=== PATIENT | male | born 1930 | race Caucasian/White ===

== ENCOUNTER 2018-03-06 14:03 | Inpatient (IN) | payer OTHER ==
[~2018-03-06] VITALS: Ht 167.6 cm; Wt 83.5 kg
--- NOTE | ~2018-03-06 | 2DMMODE ---
[facility] [address] [place] [address] 2 D/M-MODE ECHOCARDIOGRAM Name: YISELJESS Duane Room #: 451-P ADM IN .R.#: [id number] Admission: 03/06/18 Attend Phys: Sumit Canseco MD Discharge: Date of : [birth year] Date of Service: 03/07/18 1040 Report #: [id number] THIS REPORT FOR: //name// APPROVED REPORT Study performed: 03/07/2018 07:38:27 EXAM: Comprehensive 2D, Doppler, and color-flow Echocardiogram Patient Location: Bedside Room #: [facility] Status: routine BSA: 1.96 HR: 67 bpm BP: 137/87 mmHg Other Information Study Quality: Adequate Indications Congestive Heart Failure Diabetes CAD Hypertension/HDD Hx afib, SOA, elevated BNP 2D Dimensions RVDd: 44.07 mm IVSd: 12.81 (7-11mm) LVOT Diam: 21.64 (18-24mm) LVDd: 50.54 mm PWd: 11.49 (7-11mm) Ascending Ao: 24.97 (22-36mm) LVDs: 46.73 (25-40mm) Aortic Root: 29.90 mm IVC: 22.00 mm Volumes Left Atrial Volume (Systole) Single Plane 4CH: 50.60 mL Single Plane 2CH: 57.17 mL LA ESV Index: 31.00 mL/m2 Aortic Valve AoV Peak Bean.: 2.37 m/s AO Peak Gr.: 22.48 mmHg LVOT Max P.23 mmHg AO Mean Gr.: 11.05 mmHg LVOT Mean P.55 mmHg AO V2 Mean: 1.53 m/s LVOT Max V: 0.55 m/s AO V2 VTI: 49.91 cm LVOT Mean V: 0.33 m/s FRANCISCO (VTI): 0.91 cm2 LVOT V1 VTI: 12.38 cm [facility] [place] [address] 2 D/M-MODE ECHOCARDIOGRAM Name: YISELJESS Duane Room #: 451-P [facility] IN [facility].#: [id number] Admission: 03/06/18 Attend Phys: Sumit Canseco MD Discharge: Date of : [birth year] Date of Service: 03/07/18 1040 Report #: [id number] FRANCISCO Vmax: 0.86 cm2 AI Vmax: 3.39 m/s SV (LVOT): 45.49 mL AI [place]: 2.28 m/s2 AI PHT: 431.34 ms Mitral Valve E/A Ratio: 3.4 MV Decel. Time: 165.37 ms MV E Max Bean.: 1.01 m/s MV A Bean.: 0.30 m/s MV PHT: 47.96 ms IVRT: 83.04 ms Pulmonary Valve PV Peak Bean.: 0.60 m/s PV Peak Gr.: 1.51 mmHg Pulmonary Vein P Vein S: 0.19 m/s P Vein D: 0.26 m/s P Vein S/D Ratio: 0.73 Tricuspid Valve TR Peak Bean.: 3.57 m/s RAP Estimate: 15.00 mmHg TR Peak Gr.: 50.90 mmHg PA Pressure: 66.00 mmHg Left Ventricle The left ventricle is normal size. Mild concentric left ventricular hypertrophy. Left ventricular systolic function is severely decreased. LVEF is 25%. Transmitral Doppler flow pattern suggests restrictive physiology. Right Ventricle Right ventricle is mildly dilated. Right ventricle is hypokinetic. Atria Left atrium is at the upper limits of normal. Right atrium is mildly dilated. Aortic Valve Aortic valve is heavily calcified. Mild aortic regurgitation. There is severe valvular aortic stenosis. Calculated aortic valve area is 0.9 cm2 with maximum pressure gradient of 22 mmHg and mean pressure gradient of 11 mmHg, however pressure gradients likely underestimated due to decreased EF. [facility] [address] [place] [address] 2 D/M-MODE ECHOCARDIOGRAM Name: YISELJESS Duane Room #: 451-P [facility] IN M.R.#: [id number] Admission: 03/06/18 Attend Phys: Sumit Canseco MD Discharge: Date of : [birth year] Date of Service: 03/07/18 1040 Report #: [id number] Mitral Valve Mild mitral annular calcification. Mild mitral regurgitation. No evidence of mitral valve stenosis. Tricuspid Valve The tricuspid valve is normal in structure. Mild tricuspid regurgitation. PAP is estimated at 66 mmHg. Pulmonic Valve The pulmonary valve is normal in structure. Mild pulmonic regurgitation. Great Vessels The aortic root is normal in size. IVC is mildly dilated and collapses <50% with inspiration. Pericardium There is no pericardial effusion. <Conclusion> The left ventricle is normal size. Mild concentric left ventricular hypertrophy. Left ventricular systolic function is severely decreased. LVEF is 25%. Transmitral Doppler flow pattern suggests restrictive physiology. Right ventricle is mildly dilated. Right ventricle is hypokinetic. Right atrium is mildly dilated. Aortic valve is heavily calcified. Mild aortic regurgitation. There is severe valvular aortic stenosis. Calculated aortic valve area is 0.9 cm2 with maximum pressure gradient of 22 mmHg and mean pressure gradient of 11 mmHg, however pressure gradients likely underestimated due to decreased EF. Mild mitral annular calcification. Mild mitral regurgitation. Mild tricuspid regurgitation. PAP is estimated at 66 mmHg. The aortic root is normal in size. There is no pericardial effusion. <ELECTRONICALLY SIGNED> By: Prasanth Livingston MD, FACC 03/07/18 1040 1040 1040 Prasanth Livingston MD, FACC /INF
--- NOTE | ~2018-03-06 | EKG ---
[address] [address] ELECTROCARDIOGRAM REPORT Name: JESS MORILLO Room #: 451-P [facility] IN .R.#: [id number] Admission: 03/06/18 Attend Phys: Sumit Canseco MD Discharge: 03/09/18 Date of : [birth year] Report #: [id number] THIS REPORT FOR: //name// [facility] ED Test Date: 2018-03-06 Test Time: 14:13:02 Pat Name: JESS MORILLO Department: Room: [facility] Gender: M Project Consultant: JYOTHI : 1930 Requested By: Gallo Ga Order Number: [id number] MD: Andry Prieto Measurements Intervals [place] Rate: 90 P: 30 NH: 169 QRS: -106 QRSD: 150 T: 56 QT: 430 QTc: 527 Interpretive Statements Sinus rhythm Right bundle branch block Inferior infarct, old No previous ECG available for comparison Electronically Signed On 03-09-2018 17:23:52 CDT by Andry Prieto [email or web address] <ELECTRONICALLY SIGNED> By: Andry Prieto MD 03/09/18 172 1413 141 Andry Prieto MD /HUSSEIN
[2018-03-06 14:04] VITALS: BP 151/87
[2018-03-06 14:28] LABS: ABSOLUTE NEUTROPHILS 8.5 thou/uL (1.4-8.2); BASOPHILS 0.5 % (0.0-2.0); EOSINOPHILS 1.2 % (0.0-3.0); HEMATOCRIT 51.2 % (42.0-52.0); HEMOGLOBIN 16.6 gm/dL (14.0-18.0); LYMPHOCYTES 8.2 % (24.0-44.0); MCH 28.6 pg (26.0-34.0); MCHC 32.5 g/dL (28.0-37.0); MCV 88.2 fL (80.0-100.0); MONOCYTES 6.6 % (1.0-8.0); PLATELET COUNT 184 thou/uL (150-400); POLYS 83.5 % (36.0-66.0); RBC 5.81 mil/uL (4.50-6.00); WBC 10.2 thou/uL (4.0-11.0)
[2018-03-06 14:40] LABS: CALCIUM 9.6 mg/dL (8.5-10.1); POTASSIUM 4.6 mmol/L (3.5-5.1)
[2018-03-06 14:48] LABS: ALBUMIN 3.2 g/dL (3.4-5.0); TOTAL BILIRUBIN 1.4 mg/dL (<0.1-1.0); TOTAL PROTEIN 7.1 g/dL (6.4-8.2); TROPONIN-I 0.19 ng/mL (<0.06)
[2018-03-06] MEDS ORDERED: CELEXA10 MG PO (16:06)
[2018-03-06] MEDS ORDERED: ARICEPT 5 MG TAB5 MG PO (16:06)
[2018-03-06] MEDS ORDERED: LASIX 80 MG TAB80 MG PO (16:07)
[2018-03-06] MEDS ORDERED: GLUCOTROL5 MG PO (16:08)
[2018-03-06] MEDS ORDERED: GLIPIZIDE 10 MG10 MG PO (16:08)
[2018-03-06] MEDS ORDERED: HUMALOG100 UNIT/1 SUBQ ×2 (16:09)
[2018-03-06] MEDS ORDERED: JANUVIA50 MG PO (16:10)
[2018-03-06] MEDS ORDERED: IMDUR 30 MG TAB30 M1 PO (16:10)
[2018-03-06] MEDS ORDERED: NITROGLYCERIN0.4 MG SUBLING (16:11)
[2018-03-06] MEDS ORDERED: TOPROL XL25 MG PO (16:11)
[2018-03-06] MEDS ORDERED: COZAAR 25 MG TA25 M2 PO (16:11)
[2018-03-06] MEDS ORDERED: ASPIR 8181 MG PO (16:12)
[2018-03-06] MEDS ORDERED: FISH OIL 1,001000 M2 PO (16:12)
[2018-03-06] MEDS ORDERED: CENTRUM SILVER1 EAC4 PO (16:12)
[2018-03-06] MEDS ORDERED: KLOR-CON 1010 MEQ PO (16:12)
[2018-03-06 17:42] VITALS: BP 153/80
[2018-03-06 18:26] VITALS: BP 134/88
[2018-03-06 20:00] VITALS: BP 118/74
[2018-03-07 00:34] VITALS: BP 130/84
[2018-03-07 04:06] LABS: GLYCOHEMOGLOBIN (HGB A1C) 7.3 % (4.8-5.6)
[2018-03-07 04:14] VITALS: BP 137/87
[2018-03-07 04:43] LABS: ABSOLUTE NEUTROPHILS 6.3 thou/uL (1.4-8.2); BASOPHILS 0.3 % (0.0-2.0); EOSINOPHILS 2.5 % (0.0-3.0); HEMOGLOBIN 16.3 gm/dL (14.0-18.0); LYMPHOCYTES 10.4 % (24.0-44.0); MCH 29.2 pg (26.0-34.0); MCHC 33.2 g/dL (28.0-37.0); MCV 87.8 fL (80.0-100.0); MONOCYTES 9.6 % (1.0-8.0); PLATELET COUNT 174 thou/uL (150-400); POLYS 77.2 % (36.0-66.0); RBC 5.58 mil/uL (4.50-6.00); RDW 15.4 % (10.5-14.5); WBC 8.1 thou/uL (4.0-11.0)
[2018-03-07 04:55] LABS: CALCIUM 9.7 mg/dL (8.5-10.1); CREATININE 2.1 mg/dL (0.7-1.3); MAGNESIUM 2.1 mg/dL (1.8-2.4)
[2018-03-07 07:35] VITALS: BP 129/78
[2018-03-07 15:22] VITALS: BP 126/70
[2018-03-07 19:35] VITALS: BP 126/77
[2018-03-08 03:51] VITALS: BP 135/56
[2018-03-08 05:35] LABS: HEMATOCRIT 49.7 % (42.0-52.0); HEMOGLOBIN 16.2 gm/dL (14.0-18.0); MCH 28.8 pg (26.0-34.0); MCHC 32.5 g/dL (28.0-37.0); MCV 88.6 fL (80.0-100.0); RBC 5.61 mil/uL (4.50-6.00); RDW 15.5 % (10.5-14.5); WBC 7.3 thou/uL (4.0-11.0)
[2018-03-08 05:42] LABS: CALCIUM 9.2 mg/dL (8.5-10.1); CREATININE 1.9 mg/dL (0.7-1.3); POTASSIUM 3.3 mmol/L (3.5-5.1)
[2018-03-08 08:33] VITALS: BP 158/70
[2018-03-08 16:35] VITALS: BP 133/73
[2018-03-08 19:29] VITALS: BP 130/47
[2018-03-09 04:35] VITALS: BP 146/93
[2018-03-09 07:29] VITALS: BP 125/81
[2018-03-09 10:35] VITALS: BP 125/81
== END 2018-03-09 15:40 | disposition home or self-care (01) | DRG 291 ==
LOC: ER 14:03 → 4W 15:07 → EROBS 15:07 → 4W 18:14 → ENTRNSPT 03-09 15:25 → EDTRNSPTSTS 03-09 15:33 → 4W 03-09 15:40
PROVIDERS: Emergency Medicine; Internal Medicine; Nurse Practitioner
DX: I11.0 Hypertensive heart disease with heart failure (principal); E43 Unspecified severe protein-calorie malnutrition; N17.9 Acute kidney failure, unspecified; E11.9 Type 2 diabetes mellitus without complications; F03.90 Unspecified dementia, unspecified severity, without behavioral disturbance, psychotic disturbance, mood disturbance, and anxiety; E78.5 Hyperlipidemia, unspecified; I25.10 Atherosclerotic heart disease of native coronary artery without angina pectoris; I48.0 Paroxysmal atrial fibrillation; N40.0 Benign prostatic hyperplasia without lower urinary tract symptoms; F32.9 Major depressive disorder, single episode, unspecified; H26.9 Unspecified cataract; I35.0 Nonrheumatic aortic (valve) stenosis; I50.9 Heart failure, unspecified; Z91.19 Patient's noncompliance with other medical treatment and regimen; Z79.899 Other long term (current) drug therapy; Z79.82 Long term (current) use of aspirin; Z79.4 Long term (current) use of insulin; Z88.0 Allergy status to penicillin; Z86.73 Personal history of transient ischemic attack (TIA), and cerebral infarction without residual deficits; Z98.42 Cataract extraction status, left eye; Z98.41 Cataract extraction status, right eye; Z87.891 Personal history of nicotine dependence; I50.23 Acute on chronic systolic (congestive) heart failure
CPT/HCPCS: 10045

== ENCOUNTER 2018-05-01 16:14 | Inpatient (IN) | payer OTHER ==
[~2018-05-01] VITALS: Ht 167.6 cm; Wt 84.4 kg
--- NOTE | ~2018-05-01 | EKG ---
[address] [address] ELECTROCARDIOGRAM REPORT Name: MORILLO,JESS Zepeda Room #: 361-P ADM IN M.R.#: [id number] Admission: 05/01/18 Attend Phys: Gagan Hobson MD Discharge: Date of : [birth year] Report #: [id number] THIS REPORT FOR: //name// [facility] Test Date: 2018-05-01 Test Time: 20:02:47 Pat Name: JESS MORILLO Department: Room: [facility] Gender: M Enterprise Systems Architect: carlitos : 1930 Requested By: Briana Muniz Order Number: [id number] MD: Andry Prieto Measurements Intervals [place] Rate: 80 P: [place]: QRS: -106 QRSD: 155 T: 50 QT: 453 QTc: 523 Interpretive Statements Sinus rhythm Right bundle branch block Inferior infarct, old Electronically Signed On 05-03-2018 20:22:48 INFORMATION RECEPTIONIST by Andry Prieto [email or web address] <ELECTRONICALLY SIGNED> By: Andry Prieto MD 05/03/182021 01 01 Andry Prieto MD /HUSSEIN
--- NOTE | ~2018-05-01 | EKG ---
[address] [address] ELECTROCARDIOGRAM REPORT Name: JESS MORILLO Room #: 361- ADM IN M.R.#: [id number] Admission: 05/01/18 Attend Phys: Gagan Hobson MD Discharge: Date of : [birth year] Report #: [id number] THIS REPORT FOR: //name// [facility] ED Test Date: 2018-05-01 Test Time: 16:27:30 Pat Name: JESS MORILLO Department: Room: 361 Gender: M Inorganic Chemistry Teacher: = : 1930 Requested By: Briana Muniz Order Number: [id number] MD: Andry Prieto Measurements Intervals [place] Rate: 85 P: 64 ME: 114 QRS: -121 QRSD: 155 T: 60 QT: 440 QTc: 524 Interpretive Statements Sinus rhythm Borderline short ME interval Right bundle branch block Inferolateral infarct, old Compared to ECG 03/06/2018 14:13:02 No significant changes Electronically Signed On 05-03-2018 20:19:07 STONE RIGGER by Andry Prieto [email or web address] <ELECTRONICALLY SIGNED> By: Andry Prieto MD 05/03/182018 162 26 Andry Prieto MD /EPI
--- NOTE | ~2018-05-01 | HC ---
[facility] [place] [address] CONSULTATION Name: JESS MORILLO Room #: 361-P [facility] IN ..#: [id number] Admission: 05/01/18 Attend Phys: Gagan Hobson MD Discharge: 05/05/18 Date of : [birth year] Report #: [id number] THIS REPORT FOR: //name// CC: Harsha Jacobo DO Gagan Hobson DATE OF SERVICE: 05/02/2018 HISTORY OF PRESENT ILLNESS: The patient is an 88-year-old white male who I was asked to see in the hospital after he complained of being short of breath. The patient has an extensive past medical history. He had a previous coronary stenting back in the at [facility]. He currently has a cardiomyopathy. He has been followed by my partner, Dr. Ocampo. He was actually admitted to hospital in January with congestive heart failure. He was taken off his ARB because of azotemia. He had an echocardiogram in January that showed ejection fraction of only 20% with moderate aortic stenosis. He was not felt to be a candidate for TAVR. He just saw Dr. Ocampo in February. The patient states that he was doing well until the last few days he has had increasing shortness of breath. Denied any orthopnea, edema, fever or cough. He has only had rare chest pain. He notes occasional flutter in his chest, but no syncope. He came to the hospital yesterday and was admitted. PAST MEDICAL HISTORY: Otherwise significant for cataract extraction, knee arthroplasty, hypertension, diabetes, and hyperlipidemia. He apparently has had a history of atrial fibrillation, although he has never been cardioverted. CURRENT MEDICATIONS: Include aspirin, Celexa, Aricept for memory loss, Lasix, Glucotrol, insulin, Imdur, metoprolol, potassium, Januvia, losartan, isosorbide. ALLERGIES: HE HAS AN ALLERGY TO PENICILLIN. FAMILY HISTORY: His brother had coronary artery bypass surgery. SOCIAL HISTORY: He is . He and his live in a senior citizen center in [place], [place]. His is actually a patient of mine and has a pacemaker. He previously worked on elevators and escalators. Quit smoking years ago. No alcohol abuse. REVIEW OF SYSTEMS: He has had a TIA in the past. No history of asthma, peptic ulcer disease. He has chronic kidney disease, no cancer. No liver disease. No psychiatric illness. PHYSICAL EXAMINATION: GENERAL: Revealed an elderly frail-appearing male, lying in bed. He appeared [place] [address] CONSULTATION Name: JESS MORILLO Room #: 361-P [facility] IN ..#: [id number] Admission: 05/01/18 Attend Phys: Gagan Hobson MD Discharge: 05/05/18 Date of : [birth year] Report #: [id number] VITAL SIGNS: He had a blood pressure 120/80, pulse is 80. He is afebrile. HEENT: He is anicteric. Conjunctivae pink. Mucous membranes moist. NECK: Veins appear mildly distended. CHEST: Revealed decreased breath sounds at the bases. CARDIAC: Regular rate and rhythm, grade 3 systolic ejection murmur at left sternal border. ABDOMEN: Distended, soft. EXTREMITIES: Had trace edema. Dorsalis pedis pulse could not be palpated. SKIN: Cool and dry. NEUROLOGIC: He is very slow moving. LABORATORY DATA: ECG appeared to show a sinus rhythm with a left bundle-branch block. He did have an echocardiogram in February that showed ejection fraction of 25% with peak gradient of 22. His x-rays, he had a portable chest x-ray that showed cardiomegaly, pulmonary edema, small effusions. His lab work, sodium 142, BUN 33, creatinine 1.9, it was 2.0 in February, glucose 168. Liver function studies are normal. Troponin 0.19. BNP 12,571. White blood cell count 7.0, hemoglobin 14.6. IMPRESSION AND RECOMMENDATIONS: 1. Coronary artery disease. Borderline troponin. I will continue aspirin 81 mg a day. 2. Cardiomyopathy. The patient is on a beta sana. I would switch to carvedilol. I would recommend resuming his losartan, which was discontinued because of kidney disease, which appears to be stable. I would add Aldactone. I would continue Lasix. The patient did request a do not intubate status. 3. Moderate aortic stenosis. 4. Diabetes. 5. Chronic kidney disease. 6. History of atrial fibrillation. The patient appears to be remaining in sinus rhythm. <ELECTRONICALLY SIGNED> By: Harsha Hensley MD, FACC 05/11/18 1307 1255 1349 Harsha Hensley MD, FACC /nt
[~2018-05-01 16:14] MED LIST: ARICEPT 5 MG TAB5 MG PO; ASPIR 8181 MG PO; CELEXA10 MG PO; CENTRUM SILVER1 EAC4 PO; COZAAR 25 MG TA25 M2 PO; FISH OIL 1,001000 M2 PO; GLIPIZIDE 10 MG10 MG PO; GLUCOTROL5 MG PO; HUMALOG100 UNIT/1 SUBQ; IMDUR 30 MG TAB30 M1 PO; JANUVIA50 MG PO; KLOR-CON 1010 MEQ PO; LASIX 80 MG TAB80 MG PO; NITROGLYCERIN0.4 MG SUBLING; TOPROL XL25 MG PO
[2018-05-01 16:15] VITALS: BP 134/68
[2018-05-01 16:57] LABS: BASOPHILS 0.5 % (0.0-2.0); EOSINOPHILS 1.4 % (0.0-3.0); HEMATOCRIT 49.9 % (42.0-52.0); HEMOGLOBIN 16.4 gm/dL (14.0-18.0); MCH 28.9 pg (26.0-34.0); MCHC 32.7 g/dL (28.0-37.0); MCV 88.1 fL (80.0-100.0); MONOCYTES 8.8 % (1.0-8.0); PLATELET COUNT 184 thou/uL (150-400); POLYS 81.3 % (36.0-66.0); RBC 5.66 mil/uL (4.50-6.00); RDW 15.4 % (10.5-14.5); WBC 9.8 thou/uL (4.0-11.0)
[2018-05-01] MEDS ORDERED: GLUCOTROL5 MG PO (17:00)
[2018-05-01 17:04] LABS: CALCIUM 9.9 mg/dL (8.5-10.1); CREATININE 1.9 mg/dL (0.7-1.3); POTASSIUM 4.8 mmol/L (3.5-5.1)
[2018-05-01 17:13] LABS: ALBUMIN 3.3 g/dL (3.4-5.0); MAGNESIUM 2.1 mg/dL (1.8-2.4); TOTAL PROTEIN 7.5 g/dL (6.4-8.2); TROPONIN-I 0.19 ng/mL (<0.06)
[2018-05-01 17:42] VITALS: BP 127/78
[2018-05-01 18:08] VITALS: BP 127/78
[2018-05-01 19:25] VITALS: BP 133/90
[2018-05-02 00:23] VITALS: BP 123/75
[2018-05-02 04:00] VITALS: BP 106/72
[2018-05-02 06:14] LABS: HEMATOCRIT 44.6 % (42.0-52.0); HEMOGLOBIN 14.6 gm/dL (14.0-18.0); MCH 29.1 pg (26.0-34.0); MCHC 32.8 g/dL (28.0-37.0); MCV 88.8 fL (80.0-100.0); RBC 5.02 mil/uL (4.50-6.00); RDW 15.3 % (10.5-14.5)
[2018-05-02 06:30] LABS: CALCIUM 8.9 mg/dL (8.5-10.1); CREATININE 1.9 mg/dL (0.7-1.3); POTASSIUM 4.8 mmol/L (3.5-5.1)
[2018-05-02 07:30] VITALS: BP 132/67
[2018-05-02 11:15] VITALS: BP 120/69
[2018-05-02 16:18] VITALS: BP 116/69
[2018-05-02 20:15] VITALS: BP 117/62
[2018-05-03 04:20] VITALS: BP 100/66
[2018-05-03 06:40] LABS: ABSOLUTE NEUTROPHILS 5.1 thou/uL (1.4-8.2); BASOPHILS 0.5 % (0.0-2.0); EOSINOPHILS 3.5 % (0.0-3.0); HEMATOCRIT 43.4 % (42.0-52.0); HEMOGLOBIN 14.2 gm/dL (14.0-18.0); LYMPHOCYTES 10.3 % (24.0-44.0); MCH 28.9 pg (26.0-34.0); MCHC 32.7 g/dL (28.0-37.0); MCV 88.4 fL (80.0-100.0); MONOCYTES 10.9 % (1.0-8.0); PLATELET COUNT 156 thou/uL (150-400); POLYS 74.8 % (36.0-66.0); RBC 4.91 mil/uL (4.50-6.00); RDW 15.1 % (10.5-14.5); WBC 6.9 thou/uL (4.0-11.0)
[2018-05-03 06:51] LABS: CALCIUM 9.2 mg/dL (8.5-10.1); CREATININE 2.1 mg/dL (0.7-1.3); POTASSIUM 4.3 mmol/L (3.5-5.1)
[2018-05-03 06:55] LABS: CHOLESTEROL 146 mg/dL (<200); HDL CHOLESTEROL 48 mg/dL (>40); LDL CHOLESTEROL 89 mg/dL (<100); TRIGLYCERIDE 48 mg/dL (<150); VLDL 10 mg/dL (<40)
[2018-05-03 07:38] VITALS: BP 117/63
[2018-05-03 12:35] VITALS: BP 101/63
[2018-05-03 14:31] VITALS: BP 110/57
[2018-05-03 16:23] VITALS: BP 126/72
[2018-05-03 19:45] VITALS: BP 131/80
[2018-05-04 04:03] VITALS: BP 123/64
[2018-05-04 05:54] LABS: CALCIUM 9.1 mg/dL (8.5-10.1); CREATININE 1.9 mg/dL (0.7-1.3); POTASSIUM 4.4 mmol/L (3.5-5.1)
[2018-05-04 07:42] VITALS: BP 107/57
[2018-05-04 11:26] VITALS: BP 99/55
[2018-05-04 15:48] VITALS: BP 137/72
[2018-05-04 19:50] VITALS: BP 139/85
[2018-05-05 04:40] VITALS: BP 120/63
[2018-05-05 05:42] LABS: ABSOLUTE NEUTROPHILS 5.7 thou/uL (1.4-8.2); BASOPHILS 0.2 % (0.0-2.0); EOSINOPHILS 3.2 % (0.0-3.0); HEMATOCRIT 44.6 % (42.0-52.0); HEMOGLOBIN 14.6 gm/dL (14.0-18.0); LYMPHOCYTES 8.9 % (24.0-44.0); MCHC 32.9 g/dL (28.0-37.0); MCV 88.2 fL (80.0-100.0); MONOCYTES 7.8 % (1.0-8.0); PLATELET COUNT 143 thou/uL (150-400); POLYS 79.9 % (36.0-66.0); RBC 5.05 mil/uL (4.50-6.00); RDW 14.9 % (10.5-14.5); WBC 7.1 thou/uL (4.0-11.0)
[2018-05-05 05:53] LABS: CALCIUM 9.5 mg/dL (8.5-10.1); CREATININE 1.6 mg/dL (0.7-1.3); POTASSIUM 4.1 mmol/L (3.5-5.1)
[2018-05-05 07:57] VITALS: BP 108/71
[2018-05-05] MEDS ORDERED: COZAAR 25 MG TA25 M2 PO (08:46)
[2018-05-05] MEDS ORDERED: SPIRONOLACTONE25 M1 PO (08:46)
[2018-05-05] MEDS ORDERED: LASIX 40 MG TAB40 M2 PO (08:46)
[2018-05-05] MEDS ORDERED: CARVEDILOL3.125 MG PO (08:46)
[2018-05-05 09:41] VITALS: BP 108/71
[2018-05-05 10:24] LABS: FOLIC ACID 34.3 ng/mL (8.6-58.9)
[2018-05-05 11:25] VITALS: BP 115/66
[2018-05-05] MEDS ORDERED: OXYGEN NASAL (12:49)
== END 2018-05-05 15:26 | disposition home health service (06) | DRG 291 ==
LOC: ER 16:14 → EROBS 17:29 → 3W 17:29 → ENTRNSPT 05-05 15:15 → EDTRNSPTSTS 05-05 15:17 → 3W 05-05 15:26
PROVIDERS: Hospitalist; Internal Medicine Cardiovascular Disease; Physician Assistant
DX: I13.0 Hypertensive heart and chronic kidney disease with heart failure and stage 1 through stage 4 chronic kidney disease, or unspecified chronic kidney disease (principal); I50.23 Acute on chronic systolic (congestive) heart failure; E43 Unspecified severe protein-calorie malnutrition; N18.4 Chronic kidney disease, stage 4 (severe); I42.9 Cardiomyopathy, unspecified; F03.90 Unspecified dementia, unspecified severity, without behavioral disturbance, psychotic disturbance, mood disturbance, and anxiety; F32.9 Major depressive disorder, single episode, unspecified; E78.5 Hyperlipidemia, unspecified; N40.0 Benign prostatic hyperplasia without lower urinary tract symptoms; I48.0 Paroxysmal atrial fibrillation; R26.9 Unspecified abnormalities of gait and mobility; E88.09 Other disorders of plasma-protein metabolism, not elsewhere classified; I25.10 Atherosclerotic heart disease of native coronary artery without angina pectoris; I35.0 Nonrheumatic aortic (valve) stenosis; E07.81 Sick-euthyroid syndrome; E11.22 Type 2 diabetes mellitus with diabetic chronic kidney disease; Z86.73 Personal history of transient ischemic attack (TIA), and cerebral infarction without residual deficits; Z98.42 Cataract extraction status, left eye; Z87.891 Personal history of nicotine dependence; Z95.5 Presence of coronary angioplasty implant and graft; Z98.41 Cataract extraction status, right eye; Z79.4 Long term (current) use of insulin; Z79.82 Long term (current) use of aspirin; Z79.899 Other long term (current) drug therapy; Z88.0 Allergy status to penicillin; Z82.49 Family history of ischemic heart disease and other diseases of the circulatory system
CPT/HCPCS: 10879

== ENCOUNTER 2018-05-08 17:39 | Inpatient (IN) | payer OTHER ==
[~2018-05-08] VITALS: Ht 157.5 cm; Wt 76.2 kg
--- NOTE | ~2018-05-08 | EKG ---
[address] [address] ELECTROCARDIOGRAM REPORT Name: MORILLOJESS Room #: 363-P ADM IN M.R.#: [id number] Admission: 05/08/18 Attend Phys: Sumit Canseco MD Discharge: Date of : [birth year] Report #: [id number] THIS REPORT FOR: //name// [facility] ED Test Date: 2018-05-08 Test Time: 18:29:11 Pat Name: JESS MORILLO Department: Room: 363 Gender: M Lace Finisher: WG : 1930 Requested By: Cuba Sheth Order Number: [id number] MD: Cheng Nix Measurements Intervals [place] Rate: 93 P: 33 ND: 133 QRS: -118 QRSD: 152 T: 42 QT: 432 QTc: 538 Interpretive Statements Sinus rhythm Right bundle branch block Inferior infarct, old Compared to ECG 05/01/2018 20:02:47 No significant changes Electronically Signed On 05-10-2018 23:13:08 MOTOR EXPERT by Cheng Nix [email or web address] <ELECTRONICALLY SIGNED> By: Cheng Nix MD 05/10/18 231 182 28 Cheng Nix MD /EPI
--- NOTE | ~2018-05-08 | HC ---
[facility] [place] [address] CONSULTATION Name: JESS MORILLO Room #: 363-P ADM IN M.R.#: [id number] Admission: 05/08/18 Attend Phys: Sumit Canseco MD Discharge: Date of : [birth year] Report #: [id number] THIS REPORT FOR: //name// CC: Sumit Jacobo PRIMARY CARE PHYSICIAN: Dr. Jacobo. CHIEF COMPLAINT: Shortness of breath. HISTORY OF PRESENT ILLNESS: The patient is an 88-year-old man with a history of ischemic cardiomyopathy, severe LV dysfunction, ejection fraction 25% range. He had been having increasing shortness of breath, weight gain and weeping from his lower extremities after being discharged at this institution for CHF exacerbation approximately 48 hours prior. He was seen by home health and they referred him back to the Emergency Room. Historically, he has a history of coronary artery disease and atrial fibrillation, but denies either chest pain or palpitations on presentation. He uses O2 at 2-3 liters. He has gained approximately 3-4 pounds apparently. He has a conduction delay on his baseline rhythm, which was noted to be a sinus on admission. He also has aortic valve stenosis. PAST MEDICAL HISTORY: Ischemic cardiomyopathy 25% range, aortic valve stenosis in the xlfp-nt-awpxghbl range, coronary artery disease, remote history of revascularization; chronic kidney disease, diabetes, chronic oxygen requirement. ALLERGIES: PENICILLIN. DISCHARGE MEDICATIONS: Were Coreg 3.125 mg p.o. b.i.d., losartan 25 mg daily, Aldactone 25 mg, Lasix 40 mg daily, oxygen insulin, nitroglycerin, baby aspirin. PAST SURGICAL HISTORY: No recent surgery. REVIEW OF SYSTEMS: GASTROINTESTINAL: No nausea, vomiting, hematemesis. CARDIOVASCULAR: Positive shortness of breath, no chest pain. Positive dyspnea with exertion. Positive edema. SKIN: No rashes. Positive weeping of his lower extremities. GENERAL: No fevers or chills. ENDOCRINE: Positive diabetes. HEMATOLOGIC: No bleeding disorders. RENAL: As noted above. [facility] [address] [place] [address] CONSULTATION Name: JESS MORILLO Room #: 363-P [facility] IN ..#: [id number] Admission: 05/08/18 Attend Phys: Sumit Canseco MD Discharge: Date of : [birth year] Report #: [id number] PHYSICAL EXAMINATION: VITAL SIGNS: Blood pressure is 117/69, pulse is 80. GENERAL: This is an elderly male. He is alert, in no apparent distress. HEENT: Eyes, EOMs intact. No facial asymmetry. There is no evidence of trauma. NECK: Supple. No jugular venous distention. CARDIOVASCULAR: Regular. There is a systolic murmur. LUNGS: Diminished breath sounds. ABDOMEN: Nontender. EXTREMITIES: 2-3+ pretibial edema bilateral, symmetric. SKIN: Warm and dry. LABORATORY DATA: Electrocardiogram shows sinus rhythm, right bundle branch block. Chest x-ray shows cardiomegaly with similar appearing bilateral perihilar and lower lobe interstitial and airspace opacities compatible with apparent pulmonary edema, small bilateral effusions. Hemoglobin is 13.7. Sodium is 140, potassium 4.0, chloride is 101, CO2 is 35, BUN is 32, creatinine is 1.6. Troponin I is 0.26. NT-proBNP is 20,478. IMPRESSION: 1. Acute systolic congestive heart failure. 2. Coronary artery disease. 3. Chronic kidney disease. 4. Remote history of atrial fibrillation. 5. Right bundle branch block abnormality. 6. Respiratory insufficiency. PLAN: At this point in time, I would continue with IV diuretics and once he is clinically compensated we will try to start him on Entresto as an outpatient. <ELECTRONICALLY SIGNED> By: Harsha Hensley MD, FACC 05/11/18 1307 1258 1331 Francisco J Ocampo MD, FACC /nt
[~2018-05-08 17:39] MED LIST changes: +CARVEDILOL3.125 MG PO; +LASIX 40 MG TAB40 M2 PO; +OXYGEN NASAL; +SPIRONOLACTONE25 M1 PO
[2018-05-08 17:41] VITALS: BP 121/79
[2018-05-08 18:40] LABS: ABSOLUTE NEUTROPHILS 11.5 thou/uL (1.4-8.2); BASOPHILS 0.5 % (0.0-2.0); EOSINOPHILS 0.5 % (0.0-3.0); HEMATOCRIT 47.1 % (42.0-52.0); HEMOGLOBIN 15.7 gm/dL (14.0-18.0); LYMPHOCYTES 4.8 % (24.0-44.0); MCH 29.3 pg (26.0-34.0); MCHC 33.4 g/dL (28.0-37.0); MCV 87.7 fL (80.0-100.0); MONOCYTES 7.4 % (1.0-8.0); PLATELET COUNT 178 thou/uL (150-400); POLYS 86.8 % (36.0-66.0); RBC 5.37 mil/uL (4.50-6.00); RDW 15.3 % (10.5-14.5); WBC 13.2 thou/uL (4.0-11.0)
[2018-05-08 18:49] LABS: CALCIUM 10.1 mg/dL (8.5-10.1); CREATININE 1.7 mg/dL (0.7-1.3); POTASSIUM 4.4 mmol/L (3.5-5.1)
[2018-05-08 18:58] LABS: TROPONIN-I 0.26 ng/mL (<0.06)
[2018-05-08 19:02] LABS: URINE BILIRUBIN NEGATIVE (Negative); URINE BLOOD TRACE (Negative); URINE CLARITY CLEAR; URINE COLOR YELLOW; URINE GLUCOSE-RANDOM* NEGATIVE (Negative); URINE KETONES NEGATIVE (Negative); URINE NITRITE-REFLEX NEGATIVE (Negative); URINE PROTEIN (DIPSTICK) NEGATIVE (Negative); URINE UROBILINOGEN 0.2 E.U./dl (0.2-1.0)
[2018-05-08 19:04] LABS: URINE LEUKOCYTES-REFLEX 1+ (Negative)
[2018-05-08 19:10] LABS: HYALINE CASTS 0-3 Few /LPF (None Seen); SQUAMOUS None Seen /LPF (0-3); URINE WBC-REFLEX 0-5 Rare /HPF (0-5)
[2018-05-08 19:11] LABS: CRYSTALS None Seen /LPF (None Seen); URINE RBC 0-2 Rare /HPF (0-2)
[2018-05-08 20:21] VITALS: BP 129/75
[2018-05-08 20:34] VITALS: BP 129/75
[2018-05-08 21:00] VITALS: BP 130/79
[2018-05-09 00:31] VITALS: BP 123/73
[2018-05-09 04:48] VITALS: BP 120/63
[2018-05-09 05:48] LABS: HEMATOCRIT 41.7 % (42.0-52.0); MCHC 32.8 g/dL (28.0-37.0); MCV 88.3 fL (80.0-100.0); RBC 4.73 mil/uL (4.50-6.00); RDW 15.8 % (10.5-14.5); WBC 10.9 thou/uL (4.0-11.0)
[2018-05-09 05:49] LABS: HEMOGLOBIN 13.7 gm/dL (14.0-18.0)
[2018-05-09 06:00] LABS: CALCIUM 9.3 mg/dL (8.5-10.1); CREATININE 1.6 mg/dL (0.7-1.3)
[2018-05-09 08:28] VITALS: BP 117/69
[2018-05-09 17:11] VITALS: BP 108/63
[2018-05-09 20:30] VITALS: BP 117/69
[2018-05-10 05:00] VITALS: BP 110/66
[2018-05-10 06:34] LABS: ALBUMIN 2.3 g/dL (3.4-5.0); CALCIUM 9.3 mg/dL (8.5-10.1); CREATININE 1.9 mg/dL (0.7-1.3); POTASSIUM 3.8 mmol/L (3.5-5.1)
[2018-05-10 07:29] VITALS: BP 111/67
[2018-05-10 11:44] VITALS: BP 148/67
[2018-05-10 16:53] VITALS: BP 134/77
[2018-05-10 20:38] VITALS: BP 132/58
[2018-05-11 03:57] VITALS: BP 128/63
[2018-05-11 05:49] LABS: ALBUMIN 2.4 g/dL (3.4-5.0); CALCIUM 9.2 mg/dL (8.5-10.1); CREATININE 1.9 mg/dL (0.7-1.3); PHOSPHORUS 3.6 mg/dL (2.5-4.9); POTASSIUM 3.7 mmol/L (3.5-5.1)
[2018-05-11 07:15] VITALS: BP 97/51
[2018-05-11 16:15] VITALS: BP 144/64
[2018-05-11 19:37] VITALS: BP 117/67
[2018-05-12 02:25] VITALS: BP 120/77
[2018-05-12 04:00] VITALS: BP 158/73
[2018-05-12 06:36] LABS: ABSOLUTE NEUTROPHILS 6.4 thou/uL (1.4-8.2); BASOPHILS 0.4 % (0.0-2.0); EOSINOPHILS 2.9 % (0.0-3.0); HEMATOCRIT 43.4 % (42.0-52.0); HEMOGLOBIN 14.5 gm/dL (14.0-18.0); LYMPHOCYTES 8.3 % (24.0-44.0); MCH 29.6 pg (26.0-34.0); MCHC 33.4 g/dL (28.0-37.0); MCV 88.5 fL (80.0-100.0); MONOCYTES 10.1 % (1.0-8.0); PLATELET COUNT 174 thou/uL (150-400); POLYS 78.3 % (36.0-66.0); RBC 4.91 mil/uL (4.50-6.00); RDW 15.5 % (10.5-14.5); WBC 8.2 thou/uL (4.0-11.0)
[2018-05-12 07:01] LABS: CALCIUM 9.8 mg/dL (8.5-10.1); CREATININE 1.8 mg/dL (0.7-1.3); POTASSIUM 3.9 mmol/L (3.5-5.1)
[2018-05-12 08:20] VITALS: BP 136/84
[2018-05-12 12:11] VITALS: BP 138/87
[2018-05-12] MEDS ORDERED: METOLAZONE 2.52.5 MG PO (13:59)
== END 2018-05-12 14:51 | DRG 871 ==
LOC: ER 17:39 → 3W 19:39 → EROBS 19:39 → 3W 20:36
PROVIDERS: Family Medicine; Hospitalist; Nurse Practitioner Family; Physician Assistant
DX: A41.9 Sepsis, unspecified organism (principal); I50.23 Acute on chronic systolic (congestive) heart failure; I13.0 Hypertensive heart and chronic kidney disease with heart failure and stage 1 through stage 4 chronic kidney disease, or unspecified chronic kidney disease; N39.0 Urinary tract infection, site not specified; N18.4 Chronic kidney disease, stage 4 (severe); E46 Unspecified protein-calorie malnutrition; F03.90 Unspecified dementia, unspecified severity, without behavioral disturbance, psychotic disturbance, mood disturbance, and anxiety; F32.9 Major depressive disorder, single episode, unspecified; I48.91 Unspecified atrial fibrillation; N40.0 Benign prostatic hyperplasia without lower urinary tract symptoms; Z96.651 Presence of right artificial knee joint; I25.5 Ischemic cardiomyopathy; I25.10 Atherosclerotic heart disease of native coronary artery without angina pectoris; E11.22 Type 2 diabetes mellitus with diabetic chronic kidney disease; I45.10 Unspecified right bundle-branch block; I35.0 Nonrheumatic aortic (valve) stenosis; E78.5 Hyperlipidemia, unspecified; Z98.42 Cataract extraction status, left eye; Z98.41 Cataract extraction status, right eye; Z68.30 Body mass index [BMI] 30.0-30.9, adult; Z86.73 Personal history of transient ischemic attack (TIA), and cerebral infarction without residual deficits; Z79.4 Long term (current) use of insulin; Z79.82 Long term (current) use of aspirin; Z79.899 Other long term (current) drug therapy; Z88.0 Allergy status to penicillin
CPT/HCPCS: 10879

== ENCOUNTER 2018-11-29 16:31 | Inpatient (IN) | payer OTHER ==
[~2018-11-29] VITALS: Ht 172.7 cm; Wt 74.5 kg
[~2018-11-29 16:31] MED LIST changes: +METOLAZONE 2.52.5 MG PO
[2018-11-29 17:03] VITALS: BP 111/63
[2018-11-29 19:54] LABS: ABSOLUTE NEUTROPHILS 6.5 thou/uL (1.4-8.2); BASOPHILS 0.9 % (0.0-2.0); EOSINOPHILS 1.2 % (0.0-3.0); HEMATOCRIT 48.5 % (42.0-52.0); HEMOGLOBIN 16.2 gm/dL (14.0-18.0); LYMPHOCYTES 11.9 % (24.0-44.0); MCH 29.4 pg (26.0-34.0); MCHC 33.5 g/dL (28.0-37.0); MCV 87.9 fL (80.0-100.0); MONOCYTES 9.5 % (1.0-8.0); PLATELET COUNT 192 thou/uL (150-400); POLYS 76.5 % (36.0-66.0); RBC 5.52 mil/uL (4.50-6.00); WBC 8.5 thou/uL (4.0-11.0)
[2018-11-29 20:03] LABS: CALCIUM 10.3 mg/dL (8.5-10.1); CREATININE 3.2 mg/dL (0.7-1.3); POTASSIUM 3.7 mmol/L (3.5-5.1)
[2018-11-29 20:11] LABS: TROPONIN-I 0.24 ng/mL (<0.06)
[2018-11-29 21:40] VITALS: BP 117/86
[2018-11-29 23:08] VITALS: BP 117/69
--- NOTE | 2018-11-30 04:09 | NUR ---
PT NEW ADMIT WITH SOA, ELEVATED TROPONIN INCREASE BL EDEMA. A0 X 1. VITALS STABLE DENIES PAIN. PT DOES NOT REMEMBER MOST OF HER MEDICAL HISTORY. NO MED LIST ACOMPANIED WITH PT. ON CARDIZEM DRIP. HR >110. NO SKIN ISSUES NOTED. WILL CONTINUE TO FOLLOW PLAN OF CARE.
[2018-11-30 04:46] VITALS: BP 100/62
[2018-11-30 07:44] VITALS: BP 102/58
--- NOTE | 2018-11-30 07:49 | EKG ---
[address] [place] [address] ELECTROCARDIOGRAM REPORT Name: JESS MORILLO Room #: 216-P ADM IN M.R.#: [id number] ������������������ Admission: 11/29/18 ������������������ Attend Phys: Americo Burns MD Discharge: ������������������ Date of : [birth year] Report #: [id number] ����������������������������������������������������������������� [id number] THIS REPORT FOR: //name// [facility] ED Test Date: 2018-11-29 Test Time: 19:48:23 Pat Name: JESS MORILLO Department: Room: 216 Gender: M Shank Archer: GINNA : 1930 Requested By: Gordo Padilla Order Number: [id number] MD: Emilio Sheikh Measurements Intervals [place] Rate: 131 P: [place]: QRS: -78 QRSD: 169 T: 91 QT: 372 QTc: 550 Interpretive Statements Atrial fibrillation Right bundle branch block Left anterior hemiblock Cannot rule out inferior infarct, age indeterminate Compared to ECG 05/08/2018 18:29:11 Atrial fibrillation has replaced sinus rhythm Electronically Signed On 11-30-2018 7:48:52 CDT by Emilio Sheikh [email or web address] ��������������������������������������������� <ELECTRONICALLY SIGNED> ���������������������������������������� By: Emilio Sheikh MD, [facility] ��������������������������������������������� 11/30/18 0748 47 47 Emilio Sheikh MD, [facility] /EPI
[2018-11-30 11:22] VITALS: BP 88/63
--- NOTE | 2018-11-30 15:48 | NUR ---
FAXED REFERRAL TO [facility] SPOKE WITH JULI IN ADM SHE RECEIVED REFERRAL DCP WILL FAX PT/OT NOTES ONCE AVAILABLE TO FACILITY. DCP TO FOLLOW.
--- NOTE | 2018-11-30 16:47 | NUR ---
met with patient and at bedside. Patient lives with in independent apt at [facility]. Patient uses a walker for ambulation. reports he has become weaker in past few days. She has helped him with some adls and reports more difficultly. Discussed post acute care and pallative. reports interest in [facility] skilled unit then possibly home with [facility] which they have rec in recent past. Discussed code status and RN present and patient wishes to be a NCB. Updated Rn to call phys. Theapy evals in process.
[2018-11-30 17:30] VITALS: BP 103/69
--- NOTE | 2018-11-30 19:49 | NUR ---
PATIENT ALERT AND ORIENTED TO SELF, VSS, LOWER EXTREMITIES 1+ EDEMA, SALINE LOCK IN R AC. DISCUSSED CODE STATUS WITH PATIENT, HIS , AND EXAMINATION SCORER, LIYA, PATIENT IS REQUESTING DNR CODE STATUS.
[2018-11-30 20:29] VITALS: BP 141/90
--- NOTE | 2018-11-30 22:35 | NUR ---
GCS 14. ORIENTED TO SELF.
[2018-12-01 03:41] VITALS: BP 92/64
[2018-12-01 05:13] LABS: CALCIUM 9.9 mg/dL (8.5-10.1); CREATININE 2.9 mg/dL (0.7-1.3); POTASSIUM 3.1 mmol/L (3.5-5.1)
[2018-12-01 08:05] VITALS: BP 81/53
[2018-12-01 11:26] VITALS: BP 70/52
--- NOTE | 2018-12-01 11:44 | NUR ---
ASSUMED CARE OF PT AT 0700 THIS SHIFT. PT HAS BEEN COOPERATIVE, HAS DENIED ANY PAIN THIS SHIFT. PT IS SOMEWHAT CONFUSED AT BASELINE, ORIENTED TO SELF AND PLACE THIS SHIFT. PT'S AMIO GTT WAS DCd, SWITCHED TO ORAL AMIO. PT HAS NOT HAD VISITORS THIS SHIFT, EDUCATION WAS PROVIDED. PT IS CURRENTLY RESTING COMFORTABLY IN ROOM. PLAN OF CARE IS TO CONTINUE TO MONITOR CLOSELY AT THIS TIME.
--- NOTE | 2018-12-01 15:29 | NUR ---
FAXED TODAY'S PT/OT NOTES TO [facility] SPOKE WITH BLAIR IN ADM THEY CAN ACCEPT PT AT DC. ANTICIPATE DC TOMORROW 12/02. DCP TO FOLLOW.
--- NOTE | 2018-12-01 16:09 | NUR ---
[facility] Updated who is in agreement.
[2018-12-01 19:52] VITALS: BP 100/63
[2018-12-02 04:36] VITALS: BP 105/78
--- NOTE | 2018-12-02 07:26 | NUR ---
ASSESSMENTS CHARTED. PATIENT CODE STATUS CHANGED DURING DAY TO A DNR. ALERT AND ORIENTED DURING SHIFT. AFIB ON TELEMETRY. SWALLOWS PILLS WELL WITH WATER. UP X 1 WITH WALKER TO CHAIR. PATIENT DOES HAVE REDNESS IN THE GROIN AREA. AREA WAS WASHED AND BARRIER CREAM WAS APPLIED TO ENTIRE AREA. PER SPRINKLING TRUCK DRIVER NOTE, PATIENT IS ACCEPTED TO [facility] WHEN HE IS DISCHARGED FROM HERE. POSSIBLY TODAY.
[2018-12-02 07:35] VITALS: BP 98/60
--- NOTE | 2018-12-02 08:58 | NUR ---
PT IS VERY TIRED, PER HIS OWN WORDS, STATED BED WAS UNCOMFORTABLE, HAS ALARM ON IN HIS CHAIR, EATING 70% OF HIS MEAL, AMB W/SBA G AND WALKER. KNOWS HOW TO USE CALL LIGHT. ROOM AIR, SEE INTERVENTION FOR FULL ASSESSMENT, HAS SLIGHT COUGH, NONPRODUCTIVE, ENCOURAGED HIM TO SLOW DOWN W/PILL/FOOD/DRINK INGESTION. STATES 'NO GOAL' WHEN ASKED. CLEAR LUNGS ALBEIT DIMINISHED.
[2018-12-02 10:01] VITALS: BP 91/51
[2018-12-02 10:29] LABS: ALBUMIN 2.8 g/dL (3.4-5.0); CALCIUM 9.6 mg/dL (8.5-10.1); CREATININE 3.2 mg/dL (0.7-1.3); PHOSPHORUS 4.5 mg/dL (2.5-4.9); POTASSIUM 3.2 mmol/L (3.5-5.1)
[2018-12-02 12:48] VITALS: BP 102/44
[2018-12-02] MEDS ORDERED: PACERONE 200 M200 M1 PO (14:39)
[2018-12-02] MEDS ORDERED: TORSEMIDE20 MG PO (14:42)
--- NOTE | 2018-12-02 15:14 | NUR ---
PT DISCHARGING TODAY TO [facility] FAXED DC ORDERS/SUMMARY TO FACILITY SPOKE WITH BLAIR IN ADM SHE RECEIVED DC ORDERS AND ARRANGED TRANSPORTATION BY [facility] FOR 1730. SW TO NOTIFY PT'S FAMILY AT BEDSIDE. UNIT NOTIFIED AND CHART COPY PER US. RN TO CALL REPORT TO [phone].
--- NOTE | 2018-12-02 16:54 | NUR ---
CALLED TO GIVE REPORT AND BALIR LET US KNOW PT'S RIDE WOULD BE LATE, NO TIME SPECIFIED. GAVE REPORT TO WALTER AND LET PT KNOW. HE'LL GET DINNER BEFORE LEAVING.
[2018-12-02 17:12] VITALS: BP 102/64
--- NOTE | 2018-12-02 18:12 | NUR ---
IV AND TELE REMOVED AND PT DISCHARGED VIA [facility] [employer] AT 1811, SPOUSE CALLED TO BE GIVEN AN FYI ON HIS LATE ARRIVAL TO FACILITY JUST IN CASE SHE WAS EXPECTING TO MEET UP WITH HIM.
--- NOTE | 2018-12-03 10:07 | HC ---
[facility] [place] [address] CONSULTATION Name: JESS MORILLO Room #: 216-P [facility] IN M.R.#: [id number] Admission: 11/29/18 ������������������ Attend Phys: Americo Burns MD Discharge: 12/02/18 ������������������ Date of : [birth year] Report #: [id number] THIS REPORT FOR: //name// CC: Harsha Burns DATE OF SERVICE: 11/30/2018 REASON FOR CONSULTATION: Chronic kidney disease. HISTORY OF PRESENT ILLNESS: This unfortunate 88-year-old gentleman with severe valvular aortic stenosis and a 25% left ventricular ejection fraction as well as chronic dementia and chronic kidney disease and a baseline in the office of a creatinine between 2 and 2.5, presents with worsening shortness of air and swelling. He was hospitalized here a couple of times last April, has been hospitalized also at the [facility] fairly recently for some more problems. He has also been seen in our office by Dr. Priest. The patient presented with shortness of air, AFib and RVR, was admitted for further evaluation and treatment of that condition. Apparently, the AFib is chronic. PAST MEDICAL HISTORY: He had coronary stenting up to 20 years ago with cardiomyopathy and left ventricular ejection fraction of 20-25% with worsening aortic stenosis and not felt to be a candidate for TAVR. He has had diabetes and hypertension, left total knee replacement. HOME MEDICATIONS: Listed as aspirin 81 mg daily, carvedilol 3.125 mg b.i.d., Celexa 10 mg daily, fish oil, donepezil 10 mg daily, furosemide 40 mg daily, insulin, losartan 25 mg daily, metolazone 2.5 mg 3 days a week, vitamins, Januvia 50 mg daily, spironolactone 25 mg daily and I believe he does have oxygen at home. SOCIAL HISTORY: He is a former smoker, living at home with his . REVIEW OF SYSTEMS: GENERAL: It is very difficult to ascertain due to his rather severe dementia. He is able to answer simple questions. I am not sure of the accuracy of the responses. EYES: His vision seems to be reasonably good. ENT: Hearing seems okay. He swallows and eats well. NECK: No thyroid disease noted. ENDOCRINE: He does have diabetes. RESPIRATORY: Apparently, gets fairly easily short winded; although; the patient's count is not very good. CARDIAC: He is denying any chest pains. I do not believe he has the subjective [facility] [address] [place] [address] CONSULTATION Name: JESS MORILLO Room #: 216-P [facility] IN [facility]#: [id number] Admission: 11/29/18 ������������������ Attend Phys: Americo Burns MD Discharge: 12/02/18 ������������������ Date of : [birth year] Report #: [id number] sensation of palpitations, though he does have chronic AFib. GASTROINTESTINAL: His appetite has been okay. No nausea, vomiting or diarrhea reported. GENITOURINARY: According to the charts, he has had some difficulty with urinary retention. NEUROLOGIC: Rather confused, no specific history of stroke. PSYCHIATRIC: Only the dementia as mentioned. PHYSICAL EXAMINATION: GENERAL: This is a very elderly, chronically ill-appearing gentleman. He is not in any acute distress. SKIN: Unremarkable. SKELETAL: Shows him to be well developed, well nourished. No amputations. HEENT: Extraocular movements are full. No scleral icterus. Hearing and vision intact. Mucous membranes are moist. NECK: Neck veins are slightly distended. CHEST: Shows crackles at the lung bases. HEART: Irregularly irregular with a prominent systolic murmur. ABDOMEN: Soft and nontender. EXTREMITIES: Show 1-2+ peripheral edema. NEUROLOGIC: Shows confusion, moves all extremities. LABORATORY DATA: Urinalysis is pending. Hemoglobin is 16.2, platelets 192. Sodium 138, potassium 3.7, chloride 96, bicarbonate 32, BUN 101 and creatinine 3.2. ASSESSMENT: 1. Chronic kidney disease. He has chronic kidney disease with elevated creatinine, which is chronic and getting worse. This is complicated by very poor cardiac performance with severe valvular aortic stenosis and decreased ejection fraction. He apparently has not been a candidate for TAVR; therefore, palliative and comfort care is the only thing indicated. Along these lines, we will try with some diuretics in an effort to improve his volume overload. 2. Severe valvular aortic stenosis. 3. Atrial fibrillation, chronic. 4. Decreased left ventricular ejection fraction. 5. Dementia. ��������������������������������������������� <ELECTRONICALLY SIGNED> ���������������������������������������� By: Prasanth Brower MD ��������������������������������������������� 12/03/18 [id number] [id number] Prasanth Brower MD /nt
--- NOTE | 2018-12-11 13:02 | HC ---
[facility] [place] [address] CONSULTATION Name: JESS MORILLO Room #: 216-P [facility] IN M.R.#: [id number] Admission: 11/29/18 ������������������ Attend Phys: Americo Burns MD Discharge: 12/02/18 ������������������ Date of : [birth year] Report #: [id number] THIS REPORT FOR: //name// CC: Harsha Burns DATE OF SERVICE: 11/30/2018 CHIEF COMPLAINT: Shortness of breath, leg swelling. HISTORY OF PRESENT ILLNESS: The patient is an 88-year-old male with an ischemic cardiomyopathy, known EF in the 25% range. He has an ICD. I have seen him as an outpatient. He had presented with increasing lower extremity edema, weight gain, fatigue and lower blood pressures. At that time because of his systolic pressures in the 90s, we had to hold his beta blockers. He presents with slightly elevated atrial fibrillation heart rates, but persistent leg swelling. PAST MEDICAL HISTORY: He has remote history of anterior DC. He has an ICD. EF is in the 25% range. He had a hospitalization at [facility] for CHF within the last 2 months or so. He has atrial fibrillation. He has aortic valve stenosis with a mean gradient in the 20-30 mmHg range. Chronic kidney disease. ALLERGIES: HE HAS ALLERGIES TO PENICILLIN. HOME MEDICATIONS: Include Coreg 3.125 mg p.o. b.i.d., which has been held and losartan, which had been held, but he was taking torsemide 20 mg daily and Zaroxolyn 2.5 mg daily on Mondays, Wednesdays and Fridays and Aldactone 25 mg daily, insulin. SOCIAL HISTORY: He is a nonsmoker. REVIEW OF SYSTEMS: GENERAL: No fevers or chills. PULMONARY: No wheezing or cough. HEMATOLOGIC: No anemia or bleeding disorders. RENAL: No history of kidney disease. CARDIOVASCULAR: Positive history of coronary artery disease. No chest pain. No ICD shocks. SKIN: Positive lower extremity edema. No skin breaks. GASTROINTESTINAL: No hematemesis or melena. NEUROLOGIC: He has no seizures. PHYSICAL EXAMINATION: VITAL SIGNS: Blood pressure is 102/58. Pulse is 119, in atrial fibrillation. Pulse ox is 93%. GENERAL: This is an elderly male. He is in no apparent distress, lying flat. [facility] [address] [place] [address] CONSULTATION Name: JESS MORILLO Room #: [address] [place] [address].#: [id number] Admission: 11/29/18 ������������������ Attend Phys: Americo Burns MD Discharge: 12/02/18 ������������������ Date of : [birth year] Report #: [id number] He is alert. He is a poor center medical and lab director. HEENT: Unremarkable. There is no facial asymmetry. NECK: Supple. No jugular venous distention. CARDIOVASCULAR: Irregular. There is a systolic murmur. LUNGS: Have diminished breath sounds, basilar rales. ABDOMEN: Soft, nontender. EXTREMITIES: 2+ pretibial edema. NEUROLOGIC: There are no focal deficits. LABORATORY DATA: Electrocardiogram demonstrates atrial fibrillation and left bundle branch block. Chest x-ray shows cardiomegaly, but no effusions. LABORATORY DATA: Sodium is 138, potassium is 3.7, chloride is 96, BUN is 101, creatinine is 3.2. GFR is 18. Troponin I is 0.24. BNP is 5948. TSH 5.049. Hemoglobin is 16.2. IMPRESSION: 1. Acute systolic congestive heart failure. He has been given IV Lasix with improvement. He has had over a liter of urine output. 2. Atrial fibrillation. I would go ahead and resume his beta blockers if his blood pressure remains stable, greater than 90 systolic range. 3. Acute kidney injury. He has been followed by Nephrology, Dr. Brower in the past. We will need to monitor his renal function closely. 4. Atrial fibrillation. He has a documented fall risk and is not a good candidate for oral anticoagulation as directed by outpatient recommendations. 5. Aortic stenosis. He is not an operative candidate or TAVR candidate. Overall, he functions at a class 3-4 level and we will proceed with continued IV diuresis. ��������������������������������������������� <ELECTRONICALLY SIGNED> ���������������������������������������� By: Francisco J Ocampo MD, FACC ��������������������������������������������� 12/11/18 1302 [id number] Francisco J Ocampo MD, FACC /nt
== END 2018-12-02 18:12 | DRG 280 ==
LOC: ER 16:31 → 2N 21:07 → EROBS 21:07 → 2N 22:42
PROVIDERS: Emergency Medicine; Internal Medicine Nephrology; ADMIT Internal Medicine
DX: I13.0 Hypertensive heart and chronic kidney disease with heart failure and stage 1 through stage 4 chronic kidney disease, or unspecified chronic kidney disease (principal); I50.43 Acute on chronic combined systolic (congestive) and diastolic (congestive) heart failure; I21.4 Non-ST elevation (NSTEMI) myocardial infarction; N17.9 Acute kidney failure, unspecified; N18.4 Chronic kidney disease, stage 4 (severe); F03.90 Unspecified dementia, unspecified severity, without behavioral disturbance, psychotic disturbance, mood disturbance, and anxiety; I25.10 Atherosclerotic heart disease of native coronary artery without angina pectoris; I35.0 Nonrheumatic aortic (valve) stenosis; E78.5 Hyperlipidemia, unspecified; I25.5 Ischemic cardiomyopathy; E11.22 Type 2 diabetes mellitus with diabetic chronic kidney disease; Z96.652 Presence of left artificial knee joint; I48.2 Chronic atrial fibrillation; F32.9 Major depressive disorder, single episode, unspecified; Z66 Do not resuscitate; R53.81 Other malaise; Z86.73 Personal history of transient ischemic attack (TIA), and cerebral infarction without residual deficits; Z88.0 Allergy status to penicillin; I25.2 Old myocardial infarction; Z95.810 Presence of automatic (implantable) cardiac defibrillator; Z79.899 Other long term (current) drug therapy; Z95.5 Presence of coronary angioplasty implant and graft; Z87.891 Personal history of nicotine dependence; Z79.4 Long term (current) use of insulin
CPT/HCPCS: 10081